=== PATIENT | female | born 1955 | race Caucasian/White ===

== ENCOUNTER 2023-04-17 19:58 | Emergency (ER) | payer MEDICARE, BC, OTHER ==
[2023-04-17] MEDS ORDERED: Ondansetron 4 MG/2 ML SDV IVPUSH ONE (20:33)
[2023-04-17] MEDS ORDERED: Dextrose 5%-0.9% NaCl 1,000 ML IV SCH (20:45)
[2023-04-17 21:07] LABS: BASOPHILS ABSOLUTE AUTO 0.1 K/mm3 (0.0-0.2); BASOPHILS PERCENT AUTO 1.6 % (0.0-1.0); EOSINOPHILS ABSOLUTE AUTO 0.1 K/mm3 (0.0-0.4); EOSINOPHILS PERCENT AUTO 2.1 % (0.0-6.0); HEMATOCRIT 35.7 % (37.0-47.0); HEMOGLOBIN 12.4 gm/dl (12.0-16.0); IMMATURE GRAN ABSOLUTE AUTO 0.01 K/mm3 (0.00-0.05); IMMATURE GRAN PERCENT AUTO 0.2 % (0.0-0.4); LYMPHOCYTES ABSOLUTE AUTO 2.4 K/mm3 (1.0-4.8); LYMPHOCYTES PERCENT AUTO 39.7 % (24.0-44.0); MEAN CORPUSCULAR HEMOGLOBIN 33.6 pg (28.0-32.0); MEAN CORPUSCULAR HGB CONC 34.7 g/dl (32.0-36.0); MEAN CORPUSCULAR VOLUME 96.7 fl (83.0-99.0); MONOCYTES ABSOLUTE AUTO 0.6 K/mm3 (0.0-0.8); MONOCYTES PERCENT AUTO 9.5 % (0.0-8.0); NEUTROPHILS ABSOLUTE AUTO 2.9 K/mm3 (1.8-7.7); NEUTROPHILS PERCENT AUTO 46.9 % (41.0-71.0); PLATELET COUNT,PLT 235 K/mm3 (150-400); RED BLOOD CELL COUNT 3.69 M/mm3 (4.10-5.30)
[2023-04-17 21:26] LABS: INR 1.02; PROTHROMBIN TIME 10.9 SECONDS (9.7-12.0)
[2023-04-17 21:33] LABS: ALANINE AMINOTRANSFERASE,ALT 26 U/L (14-59); ALBUMIN 2.9 g/dl (3.4-5.0); ALKALINE PHOSPHATASE 61 U/L (46-116); ANION GAP 11.6 (5-15); ASPARTATE AMNIOTRANSFERASE,AST 23 U/L (15-37); BILIRUBIN TOTAL 0.4 mg/dL (0.2-1.0); BLOOD UREA NITROGEN,BUN 11 mg/dL (7-18); BUN/CREATININE RATIO 12.2 (14-18); C-REACTIVE PROTEIN <0.2 mg/dL (<1.0); CALCIUM 8.7 mg/dL (8.5-10.1); CARBON DIOXIDE,CO2 29 mEq/L (21-32); CHLORIDE,CL 108 mEq/L (98-107); CREATININE 0.9 mg/dL (0.55-1.02); EST CRCL DRUG DOSING (CG) 57.56 mL/min; ESTIMATED GFR 71 mL/min (>60); GLUCOSE RANDOM 77 mg/dL (70-99); LIPASE 78 U/L (73-393); MAGNESIUM 1.6 mg/dL (1.8-2.4); POTASSIUM,K 3.6 mEq/L (3.5-5.1); PROTEIN TOTAL,TP 5.9 g/dl (6.4-8.2); SODIUM,NA 145 mEq/L (136-145)
[2023-04-17] MEDS ORDERED: HYDROmorphone 0.5 MG/0.5 ML Syringe IVPUSH ONE (22:07)
== END 2023-04-17 23:24 | disposition home or self-care (01) ==
LOC: JD.ED 19:58
DX: K52.9 Noninfective gastroenteritis and colitis, unspecified (principal); R63.4 Abnormal weight loss; Z91.048 Other nonmedicinal substance allergy status; Z88.8 Allergy status to other drugs, medicaments and biological substances; Z90.49 Acquired absence of other specified parts of digestive tract
CPT/HCPCS: 36415; 80053; 82009; 83690; 83735; 85025; 85610; 86140; 96361; 96374; 96375; 99284; J1170; J2405; J7042

== ENCOUNTER 2023-04-20 09:15 | Day surgery (SDC) | payer MEDICARE, BC, OTHER ==
[2023-04-20] MEDS ORDERED: Propofol 200 MG/20 ML SDV ONE ×2 (09:20→10:15)
[2023-04-20] MEDS ORDERED: Lidocaine 1% 6 ML ONE (09:21)
[2023-04-20] MEDS ORDERED: Sodium Chloride 0.9% 10 ML Syringe FLUSH PRN (10:05)
[2023-04-20] MEDS ORDERED: Lactated Ringers 1,000 ML IV SCH (10:15)
[2023-04-20] MEDS ORDERED: Sodium Chloride 0.9% 10 ML Syringe FLUSH SCH (21:00)
== END 2023-04-20 12:14 | disposition home or self-care (01) ==
LOC: JD.SDS 09:15
PROVIDERS: ATTEND Specialist
DX: K52.9 Noninfective gastroenteritis and colitis, unspecified (principal); K57.30 Diverticulosis of large intestine without perforation or abscess without bleeding; D17.79 Benign lipomatous neoplasm of other sites; F41.9 Anxiety disorder, unspecified; M19.90 Unspecified osteoarthritis, unspecified site; J44.9 Chronic obstructive pulmonary disease, unspecified; F32.A Depression, unspecified; E03.9 Hypothyroidism, unspecified; Z88.8 Allergy status to other drugs, medicaments and biological substances; Z79.890 Hormone replacement therapy; Z79.899 Other long term (current) drug therapy; Z91.048 Other nonmedicinal substance allergy status
CPT/HCPCS: 45380; 45381; 45385; 87493; J2704; J7120; 00811; J3490

== ENCOUNTER → 2023-04-27 | Day surgery (SDC) | payer MEDICARE, BC, OTHER ==
[~2023-04-27] MED LIST: Lactated Ringers 1,000 ML IV SCH; Propofol 200 MG/20 ML SDV ONE; Sodium Chloride 0.9% 10 ML Syringe FLUSH PRN; fentaNYL 100 MCG/2 ML SDV ONE
== END | disposition home or self-care (01) ==
LOC: JD.SDS 09:33
PROVIDERS: ATTEND Specialist
DX: K58.9 Irritable bowel syndrome, unspecified (principal); K44.9 Diaphragmatic hernia without obstruction or gangrene; K52.9 Noninfective gastroenteritis and colitis, unspecified; K29.50 Unspecified chronic gastritis without bleeding; K31.89 Other diseases of stomach and duodenum; J30.9 Allergic rhinitis, unspecified; F41.9 Anxiety disorder, unspecified; M19.90 Unspecified osteoarthritis, unspecified site; J44.9 Chronic obstructive pulmonary disease, unspecified; F32.A Depression, unspecified; E03.9 Hypothyroidism, unspecified; Q61.3 Polycystic kidney, unspecified; D64.9 Anemia, unspecified; E78.00 Pure hypercholesterolemia, unspecified; R00.0 Tachycardia, unspecified; R00.2 Palpitations; Z96.659 Presence of unspecified artificial knee joint; Z90.49 Acquired absence of other specified parts of digestive tract; Z98.49 Cataract extraction status, unspecified eye; Z90.710 Acquired absence of both cervix and uterus; Z98.890 Other specified postprocedural states; Z90.721 Acquired absence of ovaries, unilateral; Z91.048 Other nonmedicinal substance allergy status; Z88.8 Allergy status to other drugs, medicaments and biological substances; Z79.899 Other long term (current) drug therapy
CPT/HCPCS: 43239; J2704; J3010; J7120; 00731

== ENCOUNTER 2024-04-29 17:51 | Emergency (ER) | payer MEDICARE, BC, OTHER ==
[2024-04-29 18:55] LABS: BASOPHILS ABSOLUTE AUTO 0.1 K/mm3 (0.0-0.2); BASOPHILS PERCENT AUTO 0.7 % (0.0-1.0); EOSINOPHILS PERCENT AUTO 0.3 % (0.0-6.0); HEMATOCRIT 39.8 % (37.0-47.0); HEMOGLOBIN 13.7 gm/dl (12.0-16.0); IMMATURE GRAN ABSOLUTE AUTO 0.04 K/mm3 (0.00-0.05); IMMATURE GRAN PERCENT AUTO 0.3 % (0.0-0.4); LYMPHOCYTES ABSOLUTE AUTO 1.5 K/mm3 (1.0-4.8); LYMPHOCYTES PERCENT AUTO 12.8 % (24.0-44.0); MEAN CORPUSCULAR HGB CONC 34.4 g/dl (32.0-36.0); MEAN CORPUSCULAR VOLUME 95.9 fl (83.0-99.0); MEAN PLATELET VOLUME 9.8 fl (9.4-12.3); MONOCYTES ABSOLUTE AUTO 0.5 K/mm3 (0.0-0.8); MONOCYTES PERCENT AUTO 4.4 % (0.0-8.0); NEUTROPHILS ABSOLUTE AUTO 9.3 K/mm3 (1.8-7.7); NEUTROPHILS PERCENT AUTO 81.5 % (41.0-71.0); PLATELET COUNT,PLT 318 K/mm3 (150-400); RED BLOOD CELL COUNT 4.15 M/mm3 (4.10-5.30); WHITE BLOOD CELL COUNT,WBC 11.44 K/mm3 (3.9-11.3)
[2024-04-29] MEDS: Metoclopramide 10 MG/2 ML SDV IVPUSH ONE (19:05)
[2024-04-29 19:18] LABS: A/G RATIO 1.2 (1-2); ALBUMIN 3.7 g/dl (3.4-5.0); ANION GAP 8.1 (5-15); BILIRUBIN TOTAL 0.5 mg/dL (0.2-1.0); CALCIUM 9.4 mg/dL (8.5-10.1); EST CRCL DRUG DOSING (CG) 49.12 mL/min; POTASSIUM,K 4.1 mEq/L (3.5-5.1); PROTEIN TOTAL,TP 6.8 g/dl (6.4-8.2)
[2024-04-29] MEDS: Sodium Chloride 0.9% 1,000 ML IV ONE (20:24)
[2024-04-29] MEDS ORDERED: Naloxone 0.4 MG/ML SDV IVPUSH PRN (21:07)
[2024-04-29] MEDS: Ondansetron 4 MG/2 ML SDV IVPUSH ONE (21:15)
[2024-04-29] MEDS: Alum Hydrox/Mag Hydrox/Simeth 30 ML, Lidocaine 2% 15 ML PO ONE (21:25)
[2024-04-29] MEDS: HYDROmorphone 0.5 MG/0.5 ML Syringe IVPUSH ONE (21:47)
== END 2024-04-29 22:55 | disposition home or self-care (01) ==
LOC: JD.ED 17:51
DX: R10.11 Right upper quadrant pain (principal); R10.30 Lower abdominal pain, unspecified; J44.9 Chronic obstructive pulmonary disease, unspecified; E78.00 Pure hypercholesterolemia, unspecified; E03.9 Hypothyroidism, unspecified; Z79.899 Other long term (current) drug therapy; Z88.8 Allergy status to other drugs, medicaments and biological substances; Z91.048 Other nonmedicinal substance allergy status
CPT/HCPCS: 36415; 71046; 76705; 80053; 83880; 84484; 85025; 85379; 86140; 93005; 96361; 96374; 96375; 99285; A9270; J2405; J2765; J7030; 93010; 99284